=== PATIENT | female | born 1935 | race Caucasian/White ===

== ENCOUNTER 2016-12-29 02:18 | Inpatient (IN) | payer OTHER, BC ==
[2016-12-29] MEDS ORDERED: ACETAMINOPHEN 500 MG TAB PO ONE (02:26)
[2016-12-29] MEDS ORDERED: NS 1,000 ML IV ONE (02:26)
[2016-12-29 02:37] LABS: % IMMATURE GRANULYOCYTES 0.4 % (0.0-1.1); ABSOLUTE IMMATURE GRANULOCYTES 0.05 10^3/uL (0.00-0.10); ADD DIFF? NO; ADD MORPH? NO; ADD SCAN? NO; ATYPICAL LYMPHOCYTE FLAG 0 (0-99); FRAGMENT RBC FLAG 0 (0-99); HEMATOCRIT 46.4 % (38.0-47.0); HEMOGLOBIN 15.7 g/dL (12.6-16.3); LEFT SHIFT FLG 0 (0-99); LIPEMIA HEMOLYSIS FLAG 90 (0-99); MEAN CELL HEMOGLOBIN 32.2 pg (27.9-34.1); MEAN CELL HEMOGLOBIN CONCENTR. 33.8 g/dL (32.4-36.7); MEAN CELL VOLUME 95.3 fL (81.5-99.8); MEAN PLATELET VOLUME 11.4 fL (8.7-11.7); PLATELET CLUMPS FLAG 0 (0-99); PLATELET COUNT 281 10^3/uL (150-400); RED BLOOD CELL COUNT 4.87 10^6/uL (4.18-5.33); RED CELL DISTRIBUTION WIDTH 13.6 % (11.5-15.2)
[2016-12-29 02:47] LABS: ANION GAP 16 mEq/L (8-16); CARBON DIOXIDE 24 mEq/l (22-31); CHLORIDE 100 mEq/L (97-110); CREATININE 0.7 mg/dL (0.6-1.0); GLOMERULAR FILTRATION RATE > 60; GLUCOSE 126 mg/dL (70-100); POTASSIUM 4.4 mEq/L (3.5-5.2); SODIUM 140 mEq/L (134-144)
--- NOTE | 2016-12-29 03:06 | EDPHY ---
H & P Stated Complaint: Coughing HPI/ROS: HPI The patient presents with cough and sore throat for the last 1 week getting progressively worse. She has just completed azithromycin for 5 days and is currently on prednisone as well. She is brought in by ambulance because tonight her coughing became very severe and was associated with shortness of breath. She also developed a fever tonight to 100.5 F. she says her cough is occasionally productive, she does not have any rhinorrhea, her son was sick recently as well. She had a room air sat of 86% upon arrival of EMS with a respiratory rate in the 30s. She was given a DuoNeb with some improvement in her symptoms. She has a history of prior pneumonia and also influenza.. REVIEW OF SYSTEMS Constitutional: No fever, no chills. Eyes: No discharge. ENT: No sore throat. Cardiovascular: No chest pain, no palpitations. Respiratory: No cough, no shortness of breath. Gastrointestinal: No abdominal pain, no vomiting. Genitourinary: No hematuria. Musculoskeletal: No back pain. Skin: No rashes. Neurological: No headache. 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 FHx: PHYSICAL General Appearance: Alert, no distress, coughing throughout the exam Eyes: Pupils equal and round no pallor or injection ENT, Mouth: Mucous membranes moist Respiratory: There are no retractions, there are coarse breath sounds in the right middle and lower lung ja without any wheezing Cardiovascular: Tachycardic rate and regular rhythm Gastrointestinal: Abdomen is soft and non-tender, no masses, bowel sounds normal Neurological: A&O, moves all extremities Skin: Warm and dry, no rashes Musculoskeletal: Neck is supple non tender Extremities: symmetrical, full range of motion Psychiatric: Patient is oriented X 3, there is no agitation Source: Patient, EMS - Personal History Current Tetanus/Diphtheria Vaccine: Unsure Current Tetanus Diphtheria and Acellular Pertussis (TDAP): Unsure Tetanus Vaccine Date: in the last 10 years - Medical/Surgical History Hx Asthma: No Hx Chronic Respiratory Disease: No Hx Diabetes: No Hx Cardiac Disease: No Hx Renal Disease: No Hx Cirrhosis: Yes Hx Alcoholism: No Hx HIV/AIDS: No Hx Splenectomy or Spleen Trauma: No Other PMH: 40 years ago was on cortisone for 2 years -- says they thought I had MS/autoimmune disease, 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, primary biliary cirrhosis; b hernia repair; hysterectomy; appy; narinder; - Social History Smoking Status: Former smoker Constitutional: Initial Vital Signs Temperature (C) 37.9 C 12/29/16 02:25 Heart Rate 109 H 12/29/16 02:25 Respiratory Rate 20 12/29/16 02:25 Blood Pressure 161/86 H 12/29/16 02:25 O2 Sat (%) 92 12/29/16 02:25 O2 Delivery Mode Nasal Cannula O2 (L/minute) 2 Allergies/Adverse Reactions: corticotropin Allergy (Severe, Verified 10/22/15 02:50) Anaphylaxis Penicillins Allergy (Mild, Verified 10/22/15 02:50) Hives Sulfa (Sulfonamide Antibiotics) Allergy (Mild, Verified 10/22/15 02:50) Rash Home Medications: Medication Instructions Recorded Aspirin [Aspirin 81mg (*)] 81 mg PO HS 12/16/14 Citalopram Hydrobromide 10 mg PO HS 12/16/14 [Citalopram HBr] Docusate Sodium [Stool Softener] 50 mg PO HS 12/16/14 Ezetimibe/Simvastatin [Vytorin 1 each PO DAILY 12/16/14 10-40 mg Tablet] LORazepam [Ativan (*)] 1 mg PO HS PRN 12/16/14 Multivitamins [Multivitamin (*)] 1 each PO DAILY 12/16/14 Ursodiol 500 mg PO DAILY 12/16/14 Cefdinir [Omnicef (RX)] 300 mg PO BID #6 cap 12/27/14 Hydrocodone/APAP 5/325 [Oliver 1 - 2 tab PO Q4 PRN #30 tab 12/27/14 5/325 (*)] Metoprolol Tartrate [Lopressor 25 12.5 mg PO BID #60 tab 12/27/14 mg (*)] Hydrocodone/APAP 5/325 [Oliver 1 - 2 tab PO Q4H PRN #10 tab 10/22/15 5/325] metroNIDAZOLE [Flagyl 500 mg (*)] 500 mg PO BID #20 tab 10/22/15 Medical Decision Making - Diagnostics Imaging Results: Chest x-ray two view shows hyperinflation without any obvious infiltrate, interpreted by me, radiology interpretation is pending. Differential Diagnosis: 81-year-old female with history of smoking, though has quit, presents with cough , shortness of breath, fever with symptoms for the last 1 week, improved somewhat with azithromycin and prednisone, however now symptoms are more severe and associated with fever. On exam, she is hypoxic, slightly tachypneic, and has coarse breath sounds in her right lung field. Differential diagnosis includes pneumonia, influenza, COPD with exacerbation. In the emergency room, the patient was given a fluid bolus, supplemental oxygen via nasal cannula and repeat DuoNeb. Her symptoms improved somewhat. Chest x- ray was performed and demonstrated hyperinflation with no obvious infiltrate. However, given clinical suspicion for pneumonia she was treated with Levaquin for community-acquired pneumonia. When on room air and standing her sats are in the mid 80s. She had a flu swab which was negative for influenza. I discussed the case with the hospitalist Dr. Stringer. He will admit the patient. The patient is aware of this plan. - Data Points Laboratory Results: Laboratory Results 12/29/16 02:15 12/29/16 02:15 12/29/16 12/29/16 12/29/16 02:35 02:35 02:15 WBC RBC Hgb Hct MCV MCH MCHC RDW Plt Count MPV Neut % (Auto) Lymph % (Auto) Grand % (Auto) Eos % (Auto) Baso % (Auto) Nucleat RBC Rel Count Absolute Neuts (auto) Absolute Lymphs (auto) Absolute Monos (auto) Absolute Eos (auto) Absolute Basos (auto) Absolute Nucleated RBC Immature Gran % Immature Gran # VBG Lactic Acid Sodium 140 mEq/L mEq/L (134-144) Potassium 4.4 mEq/L mEq/L (3.5-5.2) Chloride 100 mEq/L mEq/L (97-110) Carbon Dioxide 24 mEq/l mEq/l (22-31) Anion Gap 16 mEq/L mEq/L (8-16) BUN 20 mg/dL mg/dL (7-23) Creatinine 0.7 mg/dL mg/dL (0.6-1.0) Estimated GFR > 60 Glucose 126 mg/dL H mg/dL (70-100) Calcium 10.0 mg/dL mg/dL (8.5-10.4) Nasal Influenza A PCR Pending Nasal Influenza B PCR Pending Influenza A & B (PCR) Cancelled 12/29/16 12/29/16 02:15 02:15 WBC 14.07 10^3/uL H 10^3/uL (3.80-9.50) RBC 4.87 10^6/uL 10^6/uL (4.18-5.33) Hgb 15.7 g/dL g/dL (12.6-16.3) Hct 46.4 % % (38.0-47.0) MCV 95.3 fL fL (81.5-99.8) MCH 32.2 pg pg (27.9-34.1) MCHC 33.8 g/dL g/dL (32.4-36.7) RDW 13.6 % % (11.5-15.2) Plt Count 281 10^3/uL 10^3/uL (150-400) MPV 11.4 fL fL (8.7-11.7) Neut % (Auto) 69.9 % % (39.3-74.2) Lymph % (Auto) 18.6 % % (15.0-45.0) Grand % (Auto) 9.1 % % (4.5-13.0) Eos % (Auto) 1.4 % % (0.6-7.6) Baso % (Auto) 0.6 % % (0.3-1.7) Nucleat RBC Rel Count 0.0 % % (0.0-0.2) Absolute Neuts (auto) 9.84 10^3/uL H 10^3/uL (1.70-6.50) Absolute Lymphs (auto) 2.62 10^3/uL 10^3/uL (1.00-3.00) Absolute Monos (auto) 1.28 10^3/uL H 10^3/uL (0.30-0.80) Absolute Eos (auto) 0.20 10^3/uL 10^3/uL (0.03-0.40) Absolute Basos (auto) 0.08 10^3/uL 10^3/uL (0.02-0.10) Absolute Nucleated RBC 0.00 10^3/uL 10^3/uL (0-0.01) Immature Gran % 0.4 % % (0.0-1.1) Immature Gran # 0.05 10^3/uL 10^3/uL (0.00-0.10) VBG Lactic Acid 2.0 mmol/L mmol/L (0.7-2.1) Sodium Potassium Chloride Carbon Dioxide Anion Gap BUN Creatinine Estimated GFR Glucose Calcium Nasal Influenza A PCR Nasal Influenza B PCR Influenza A & B (PCR) Medications Given: Discontinued Medications Acetaminophen (Tylenol) 1,000 mg PO EDNOW ONE Stop: 12/29/16 02:27 Last Admin: 12/29/16 02:35 Dose: 1,000 mg Sodium Chloride (Ns) 1,000 mls @ 0 mls/hr IV EDNOW ONE; Wide Open PRN Reason: Protocol Stop: 12/29/16 02:27 Last Admin: 12/29/16 02:34 Dose: 1,000 mls Departure - Departure Disposition: [facility] Inpatient Acute Clinical Impression: Pneumonia, Hypoxia Condition: Fair Referrals: Patient,NotPresent [Unknown] - As per Instructions
[2016-12-29] MEDS ORDERED: IPRATROPIUM/ALBUTEROL 3 ML DEYVIAL ONE (03:07)
[2016-12-29] MEDS ORDERED: IPRATROPIUM/ALBUTEROL 3 ML DEYVIAL IH ONE (03:09)
[2016-12-29] MEDS ORDERED: ONDANSETRON DISINTEGRATING 4 MG TAB PO PRN (03:46)
[2016-12-29] MEDS ORDERED: ACETAMINOPHEN 325 MG TAB PO PRN (03:46)
[2016-12-29] MEDS ORDERED: ONDANSETRON 4 MG/2 ML VIAL IVP PRN (03:46)
--- NOTE | 2016-12-29 04:20 | PDGENHP ---
History and Physical - Chief Complaint Cough - History of Present Illness 81 yo F w/ hx of PBC and 25 pack year smoking hx (quit ~20 years ago) presents with 1 week of cough. Patient first developed cough and sore throat about 1 week prior to presentation. She was started on prednisone and azithromycin on Sunday by her PCP. Despite this, her cough persisted and she then developed fever and chills on . At this point she was advised by PCP to come to the ED for evaluation. In the ED the patient was tachycardic and febrile with evidence of RML/RLL pneumonia by imaging and examination. She was admitted for further management. History Information - Allergies/Home Medication List Allergies/Adverse Reactions: corticotropin Allergy (Severe, Verified 10/22/15 02:50) Anaphylaxis Penicillins Allergy (Mild, Verified 10/22/15 02:50) Hives Sulfa (Sulfonamide Antibiotics) Allergy (Mild, Verified 10/22/15 02:50) Rash Home Medications: Aspirin [Aspirin 81mg (*)] 81 mg PO HS 12/16/14 [Last Taken 12/20/14] Citalopram Hydrobromide [Citalopram HBr] 10 mg PO HS 12/16/14 [Last Taken ] Docusate Sodium [Stool Softener] 50 mg PO HS 12/16/14 [Last Taken 12/20/14] Ezetimibe/Simvastatin [Vytorin 10-40 mg Tablet] 1 each PO DAILY 12/16/14 [Last Taken 12/20/14] LORazepam [Ativan (*)] 1 mg PO HS PRN 12/16/14 [Last Taken 12/17/14 21:00] Multivitamins [Multivitamin (*)] 1 each PO DAILY 12/16/14 [Last Taken 12/20/14] Ursodiol 500 mg PO DAILY 12/16/14 [Last Taken 12/20/14] I have personally reviewed and updated: family history, medical history - Past Medical History Additional medical history: PBC - Surgical History Reports: hernia repair - Family History Positive for: cancer - Social History Smoking Status: Former smoker Review of Systems Review of Systems: ROS: 10pt was reviewed & negative except for what was stated in HPI & below Physical Exam Physical Exam: Temp Pulse Resp BP Pulse Ox 37.9 C 109 H 20 161/86 H 92 10/13/17 02:25 12/29/16 02:25 12/29/16 02:25 12/29/16 02:25 12/29/16 02:25 Constitutional: no apparent distress, appears nourished Eyes: PERRL, EOMI Ears, Nose, Mouth, Throat: moist mucous membranes, no oral mucosal ulcers Cardiovascular: systolic murmur, tachycardia Respiratory: no respiratory distress, expiratory wheeze, inspiratory crackles ( RML/RLL), rhonchi (RML/RLL) Skin: warm, normal color Musculoskeletal: full muscle strength, no muscle tenderness Neurologic: AAOx3, CN II-XII Intact Lab Data & Imaging Review 12/29/16 02:15 12/29/16 02:15 WBC 14.07 10^3/uL (3.80-9.50) H 12/29/16 02:15 RBC 4.87 10^6/uL (4.18-5.33) 12/29/16 02:15 Hgb 15.7 g/dL (12.6-16.3) 12/29/16 02:15 Hct 46.4 % (38.0-47.0) 12/29/16 02:15 MCV 95.3 fL (81.5-99.8) 12/29/16 02:15 MCH 32.2 pg (27.9-34.1) 12/29/16 02:15 MCHC 33.8 g/dL (32.4-36.7) 12/29/16 02:15 RDW 13.6 % (11.5-15.2) 12/29/16 02:15 Plt Count 281 10^3/uL (150-400) 12/29/16 02:15 MPV 11.4 fL (8.7-11.7) 12/29/16 02:15 Neut % (Auto) 69.9 % (39.3-74.2) 12/29/16 02:15 Lymph % (Auto) 18.6 % (15.0-45.0) 12/29/16 02:15 Ripley % (Auto) 9.1 % (4.5-13.0) 12/29/16 02:15 Eos % (Auto) 1.4 % (0.6-7.6) 12/29/16 02:15 Baso % (Auto) 0.6 % (0.3-1.7) 12/29/16 02:15 Nucleat RBC Rel Count 0.0 % (0.0-0.2) 12/29/16 02:15 Absolute Neuts (auto) 9.84 10^3/uL (1.70-6.50) H 12/29/16 02:15 Absolute Lymphs (auto) 2.62 10^3/uL (1.00-3.00) 12/29/16 02:15 Absolute Monos (auto) 1.28 10^3/uL (0.30-0.80) H 12/29/16 02:15 Absolute Eos (auto) 0.20 10^3/uL (0.03-0.40) 12/29/16 02:15 Absolute Basos (auto) 0.08 10^3/uL (0.02-0.10) 12/29/16 02:15 Absolute Nucleated RBC 0.00 10^3/uL (0-0.01) 12/29/16 02:15 Immature Gran % 0.4 % (0.0-1.1) 12/29/16 02:15 Immature Gran # 0.05 10^3/uL (0.00-0.10) 12/29/16 02:15 VBG Lactic Acid 2.0 mmol/L (0.7-2.1) 12/29/16 02:15 Sodium 140 mEq/L (134-144) 12/29/16 02:15 Potassium 4.4 mEq/L (3.5-5.2) 12/29/16 02:15 Chloride 100 mEq/L (97-110) 12/29/16 02:15 Carbon Dioxide 24 mEq/l (22-31) 12/29/16 02:15 Anion Gap 16 mEq/L (8-16) 12/29/16 02:15 BUN 20 mg/dL (7-23) 12/29/16 02:15 Creatinine 0.7 mg/dL (0.6-1.0) 12/29/16 02:15 Estimated GFR > 60 12/29/16 02:15 Glucose 126 mg/dL (70-100) H 12/29/16 02:15 Calcium 10.0 mg/dL (8.5-10.4) 12/29/16 02:15 Nasal Influenza A PCR NEGATIVE FOR FLU A (NEGATIVE) 12/29/16 02:35 Nasal Influenza B PCR NEGATIVE FOR FLU B (NEGATIVE) 12/29/16 02:35 Influenza A & B (PCR) Cancelled 12/29/16 02:35 Imaging Review: CXR w/ RML/RLL infiltrate and diaphragmatic flattening. Assessment & Plan Assessment: 81 yo F presents with pneumonia c/b by AHRF and exacerbation of likely undiagnosed COPD. Plan: 1. CAP - Rhonchi and crackles in RML/RLL with infiltrate on CXR. Possibly post- viral noting onset of fever and worsening SOB 3-4 days after onset of initial sore throat and cough. Flu negative. I suspect patient may have undiagnosed COPD noting long smoking hx, wheezing on end expiration, and diaphragmatic flattening on CXR. - CAP coverage with CTX/azithro; would change to Staph coverage if not improving for possible post-viral PNA - Treatment of suspected COPD exacerbation as below 2. AHRF - Mild, requiring 2-4 L/min O2 currently to maintain saturation >90%. Suspect related to PNA and COPD exacerbation. 3. Suspected COPD exacerbation - Patient does not have COPD diagnosis, but this is suspected based on long smoking hx, wheezing on exam, and CXR. - Continue Prednisone, azithromycin (Started on 12/26 by PCP, end date 12/30) - Duonebs scheduled q6h - Recommend outpatient PFTs 4. PBC - Asymptomatic, takes ursodiol. Diet - Regular Code - Full Ppx - LMWH, low dose Dispo - Admit to observation status
[2016-12-29 06:21] LABS: % IMMATURE GRANULYOCYTES 0.4 % (0.0-1.1); ABSOLUTE IMMATURE GRANULOCYTES 0.05 10^3/uL (0.00-0.10); ADD DIFF? NO; ADD MORPH? NO; ADD SCAN? NO; ATYPICAL LYMPHOCYTE FLAG 10 (0-99); FRAGMENT RBC FLAG 0 (0-99); HEMATOCRIT 37.2 % (38.0-47.0); HEMOGLOBIN 12.7 g/dL (12.6-16.3); LEFT SHIFT FLG 0 (0-99); LIPEMIA HEMOLYSIS FLAG 90 (0-99); MEAN CELL HEMOGLOBIN 32.5 pg (27.9-34.1); MEAN CELL HEMOGLOBIN CONCENTR. 34.1 g/dL (32.4-36.7); MEAN CELL VOLUME 95.1 fL (81.5-99.8); MEAN PLATELET VOLUME 11.7 fL (8.7-11.7); PLATELET CLUMPS FLAG 0 (0-99); PLATELET COUNT 223 10^3/uL (150-400); RED BLOOD CELL COUNT 3.91 10^6/uL (4.18-5.33); RED CELL DISTRIBUTION WIDTH 13.6 % (11.5-15.2)
[2016-12-29] MEDS: ENOXAPARIN 30 MG/0.3 ML SYR SC SCH (07:54)
[2016-12-29] MEDS: predniSONE 20 MG TAB PO SCH (07:54)
[2016-12-29] MEDS: IPRATROPIUM/ALBUTEROL 3 ML DEYVIAL IH SCH ×4 (08:46→21:39)
--- NOTE | 2016-12-29 13:28 | HOSPPROG ---
Hospitalist Progress Note Assessment/Plan: 81 yo female admitted for right sided CAP and COPD Exacerbation. Improving #CAP #COPD-E #Weakness and deconditioning Plan: -cont Rocephin and Azithromycin -cont Prednisone -Cont scheduled albuterol nebs -start Mucinex -order PT eval -Lovenox for DVT proph Objective: Vital Signs Temp Pulse Resp BP Pulse Ox 37.3 C 81 16 122/65 H 93 12/29/16 07:45 12/29/16 11:41 12/29/16 11:41 12/29/16 11:41 12/29/16 11:41 Laboratory Results 12/29/16 05:50 12/28/16 12/29/16 12/30/16 05:59 05:59 05:59 Intake Total 1120 Output Total 100 1525 Balance 1020 -1525 ICD10 Worksheet Patient Problems: Problems Problem Status Onset Hypoxia Acute Pneumonia Acute Anemia Acute Hyponatremia Acute Nausea & vomiting Acute Pre-syncope Acute Primary biliary cirrhosis Acute RIGHT FEMORAL HERNIA Acute
[2016-12-29] MEDS: guaiFENesin 600 MG TAB.ER PO SCH ×2 (15:12→20:28)
--- NOTE | 2016-12-29 17:06 | ASMTCMCOM ---
CM Note CM Note Notes: Pt has suspected COPD exacerbation, PNA, advised by PCP to go to hospital after persistent cough. PT eval pending. Pt may need home O2. According to LOY Hickey pt spends chung in [place], is planning to go there soon. CM to follow for d/c needs. Date Signed: 12/29/2016 05:05 PM Electronically Signed By:FRANNY Kraft
[2016-12-30 05:26] LABS: % IMMATURE GRANULYOCYTES 0.5 % (0.0-1.1); ABSOLUTE IMMATURE GRANULOCYTES 0.08 10^3/uL (0.00-0.10); ADD DIFF? NO; ADD MORPH? NO; ADD SCAN? NO; ATYPICAL LYMPHOCYTE FLAG 10 (0-99); FRAGMENT RBC FLAG 0 (0-99); HEMATOCRIT 37.6 % (38.0-47.0); HEMOGLOBIN 12.6 g/dL (12.6-16.3); LEFT SHIFT FLG 0 (0-99); LIPEMIA HEMOLYSIS FLAG 80 (0-99); MEAN CELL HEMOGLOBIN 31.7 pg (27.9-34.1); MEAN CELL HEMOGLOBIN CONCENTR. 33.5 g/dL (32.4-36.7); MEAN CELL VOLUME 94.5 fL (81.5-99.8); MEAN PLATELET VOLUME 11.6 fL (8.7-11.7); PLATELET CLUMPS FLAG 0 (0-99); PLATELET COUNT 194 10^3/uL (150-400); RED BLOOD CELL COUNT 3.98 10^6/uL (4.18-5.33); RED CELL DISTRIBUTION WIDTH 13.7 % (11.5-15.2)
[2016-12-30 05:41] LABS: ANION GAP 6 mEq/L (8-16); CALCIUM 9.3 mg/dL (8.5-10.4); CARBON DIOXIDE 23 mEq/l (22-31); CHLORIDE 105 mEq/L (97-110); CREATININE 0.6 mg/dL (0.6-1.0); GLOMERULAR FILTRATION RATE > 60; GLUCOSE 93 mg/dL (70-100); SODIUM 134 mEq/L (134-144)
[2016-12-30] MEDS: IPRATROPIUM/ALBUTEROL 3 ML DEYVIAL IH SCH ×4 (06:04→20:25)
[2016-12-30] MEDS: predniSONE 20 MG TAB PO SCH (08:26)
[2016-12-30] MEDS: guaiFENesin 600 MG TAB.ER PO SCH ×2 (08:26→20:48)
[2016-12-30] MEDS: ENOXAPARIN 30 MG/0.3 ML SYR SC SCH (08:27)
[2016-12-30] MEDS ORDERED: AZITHROMYCIN 250 MG TAB PO SCH (09:00)
[2016-12-30] MEDS ORDERED: DOCUSATE SODIUM 100 MG CAP PO PRN (11:23)
[2016-12-30] MEDS ORDERED: URSODIOL 500 MG PO SCH (11:30)
--- NOTE | 2016-12-30 11:35 | HOSPPROG ---
Hospitalist Progress Note Assessment/Plan: 81 yo female admitted for right sided CAP and COPD Exacerbation. Improving. First encounter, chart reviewed. D/W Dr. Alexander. #CAP #COPD-E #Weakness and deconditioning #AHRF #Fever Plan: -cont Rocephin and Azithromycin -cont Prednisone -Cont scheduled albuterol nebs -start Mucinex -add cough syrup -Lovenox for DVT proph -change to inpt status -requires another night in hospital for further CAP treatment Subjective: Feeling better but had a bad night. Fever and chills. No other issues. Objective: Vital Signs Temp Pulse Resp BP Pulse Ox 37.2 C 98 16 122/52 H 93 12/30/16 08:00 12/30/16 08:00 12/30/16 08:00 12/30/16 08:00 12/30/16 08:00 Laboratory Results 12/30/16 05:02 12/30/16 05:02 12/29/16 12/30/16 12/31/16 05:59 05:59 05:59 Intake Total 1120 200 Output Total 100 2975 Balance 1020 -2775 - Physical Exam Constitutional: no apparent distress, appears nourished, not in pain Eyes: PERRL, anicteric sclera, EOMI Ears, Nose, Mouth, Throat: moist mucous membranes, hearing normal, ears appear normal Cardiovascular: regular rate and rhythym, No JVD, No edema Respiratory: no respiratory distress, reduced air movement, rhonchi Gastrointestinal: normoactive bowel sounds, No ascites, No guarding Skin: warm, normal color, No erythema Musculoskeletal: normal joint ROM, no joint effusions, generalized weakness Neurologic: AAOx3 Psychiatric: interacting appropriately, not anxious, not encephalopathic, thought process linear ICD10 Worksheet Patient Problems: Problems Problem Status Onset RIGHT FEMORAL HERNIA Acute Anemia Acute Hyponatremia Acute Pre-syncope Acute Nausea & vomiting Acute Primary biliary cirrhosis Acute Pneumonia Acute Hypoxia Acute
[2016-12-30] MEDS: URSODIOL 300 MG CAP PO SCH (12:47)
--- NOTE | 2016-12-30 14:13 | PDMN ---
Medical Necessity Medical necessity: Pt meets INPT criteria per [employer]IC/MD as of 12/30/16. Est. LOS >2 MN for ongoing eval/mgmt of CAP and COPD exacerbation per [employer]IC progress note.
[2016-12-30] MEDS: HYDROCODONE/HOMATROPINE HYCODAN 5 ML UDL PO PRN (20:59)
[2016-12-30] MEDS ORDERED: ASPIRIN 81 MG CHEWABLE TAB PO SCH (21:00)
[2016-12-30] MEDS ORDERED: PRAVASTATIN SODIUM 10 MG TAB PO SCH (21:00)
[2016-12-30] MEDS ORDERED: EZETIMIBE 10 MG TAB PO SCH (21:00)
[2016-12-30] MEDS ORDERED: SIMVASTATIN PO SCH (21:00)
[2016-12-30] MEDS ORDERED: EZETIMIBE PO SCH (21:00)
[2016-12-30] MEDS ORDERED: PRAVASTATIN SODIUM 20 MG TAB PO SCH (21:00)
[2016-12-31] MEDS: HYDROCODONE/HOMATROPINE HYCODAN 5 ML UDL PO PRN (03:55)
[2016-12-31] MEDS: IPRATROPIUM/ALBUTEROL 3 ML DEYVIAL IH SCH (05:44)
[2016-12-31 07:22] VITALS: BP 137/82; PULSE 75; RESP 18; TEMP 97.9; O2SAT 94
[2016-12-31] MEDS: guaiFENesin 600 MG TAB.ER PO SCH (08:33)
[2016-12-31] MEDS: ENOXAPARIN 30 MG/0.3 ML SYR SC SCH (08:33)
[2016-12-31] MEDS ORDERED: AZITHROMYCIN 250 MG TAB PO SCH (09:00)
[2016-12-31] MEDS: URSODIOL 300 MG CAP PO SCH (09:33)
[2016-12-31] MEDS ORDERED: predniSONE 20 MG TAB PO SCH (10:15)
--- NOTE | 2016-12-31 11:20 | ASDISCHSUM ---
Discharge Information Plan Status:Home with No Needs Medically Cleared to Leave:12/31/2016 Discharge Date:12/31/2016 11:13 AM CM D/C Disposition:Home, Routine, Self-Care ADT D/C Disposition:Home, Routine, Self-Care Projected Discharge Date:12/31/2016 11:13 AM Transportation at D/C:Family Discharge Delay Reason: Follow-Up Date:12/31/2016 11:13 AM Discharge Slot: Final Diagnosis: Placement Information Patient Contact Information Contact Name:MINOR Relationship: Address:[address] Work Phone: City:[place] Alternate Phone: [facility]/Zip Code:[place] [address] Email: Financial Information Financial Class: Primary Plan Desc:MEDICARE OUTPATIENT Primary Plan Number:[id number] [facility] Secondary Plan Number:[id number] Assessment Information BC CM Progress Note CM Note CM Note Notes: Pt has suspected COPD exacerbation, PNA, advised by PCP to go to hospital after persistent cough. PT eval pending. Pt may need home O2. According to LOY Hickey pt spends in [place], is planning to go there soon. CM to follow for d/c needs. Date Signed: 12/29/2016 05:05 PM Electronically Signed By:FRANNY Kraft Intervention Information Intervention Type:*SANDRA-Signed Date of Service:12/29/2016 10:58 AM Patient Type:Observation Staff Member:Michelle Galdamez Hours: Discipline: Severity: Comment:
--- NOTE | 2016-12-31 11:21 | ASMTCMCOM ---
CM Note CM Note Notes: Chart reviewed. Medically cleared for dc. No needs identifed. CM available should needs arise, Date Signed: 12/31/2016 11:20 AM Electronically Signed By:Wendy Temple RN
--- NOTE | 2016-12-31 13:03 | GDS ---
[f rep st] DISCHARGE SUMMARY DISCHARGE DIAGNOSES: 1. Community-acquired pneumonia. 2. Chronic obstructive pulmonary disease exacerbation. 3. Weakness and deconditioning. 4. Acute hypoxemic respiratory failure. 5. Fever. STUDIES AND PROCEDURES DONE: Chest x-ray. PHYSICAL EXAM: GENERAL: The patient is alert. VITAL SIGNS: Afebrile at 36.6, pulse 75, respirator y rate is 18, blood pressure is 137/82. She is saturating 94% on room air. I have seen and evaluate d the patient on the day of discharge. HOSPITAL COURSE: The patient is a 81-year-old female, who presented to the emergency room with compl aints of shortness of breath. She was evaluated and diagnosed with: 1. Community-acquired pneumonia. During this hospitalization, she was treated with antibiotic thera py, as well as nebulizing treatments, and Mucinex. Her condition has significantly improved. She wi ll continue her antibiotic course in the outpatient setting. Prescriptions have been provided at the time of disposition. 2. COPD exacerbation. The patient has responded well to therapy of prednisone. She will continue p rednisone and finish the Medrol Dosepak, which she was taking prior to admission. 3. Weakness and deconditioning. She has been evaluated by physical therapy during this hospitalizat ion, and cleared to go home independently. 4. Acute hypoxemic respiratory failure. This has resolved and was secondary to the patient's commun ity-acquired pneumonia, as well as COPD exacerbation. 5. Fever. This is in the setting of acute infectious process and has resolved. DISPOSITION: The patient will be discharged home independently. FOLLOW UP: She will follow up with her primary care physician. There are no pending studies. DISCHARGE MEDICATIONS: Please refer to EMR form. I provided the patient a prescription for Levaquin , as well as azithromycin. She has been educated to return to the emergency room should her symptoms worsen or she becomes signi ficantly short of breath or other complications. I spent greater than 35 minutes in the care, coordination, and management of this patient's dispositi on. /[id number]/MODL
== END 2016-12-31 11:13 | disposition home or self-care (01) | DRG 193 ==
LOC: EDUNIT# → F3N 04:58 → OBSVTOIN 12-30 11:31 → F1N 12-30 17:10
PROVIDERS: ADMIT Student in an Organized Health Care Education/Training Program; ATTEND Student in an Organized Health Care Education/Training Program
DX: J18.8 Other pneumonia, unspecified organism (principal); J96.01 Acute respiratory failure with hypoxia; J44.9 Chronic obstructive pulmonary disease, unspecified; Z87.891 Personal history of nicotine dependence; Z88.9 Allergy status to unspecified drugs, medicaments and biological substances
CPT/HCPCS: 96365; 97161-GP; G0378; G8978-GP-CI; G8979-GP-CI; G8980-GP-CI; J0696; J1650; J1956

== ENCOUNTER → 2017-09-07 | Outpatient (CLI) | payer OTHER, BC | LOC: CIMAGING 10:16 | PROVIDERS: ATTEND Internal Medicine | DX: J44.9 Chronic obstructive pulmonary disease, unspecified (principal) | CPT/HCPCS: 71046-PO ==

== ENCOUNTER → 2017-09-18 | Outpatient (CLI) | payer OTHER, BC | LOC: BHFA 09:00 | PROVIDERS: ATTEND Internal Medicine Cardiovascular Disease | DX: R07.9 Chest pain, unspecified (principal); I25.10 Atherosclerotic heart disease of native coronary artery without angina pectoris | CPT/HCPCS: 78452; 93017; A9500 ==

== ENCOUNTER → 2017-09-25 | Outpatient (CLI) | payer OTHER, BC | LOC: BHFA 13:15 | PROVIDERS: ATTEND Internal Medicine Cardiovascular Disease | DX: R07.9 Chest pain, unspecified (principal) ==